=== PATIENT | male | born 1940 | race Caucasian/White ===

== ENCOUNTER 2019-03-11 07:27 | Day surgery (SDC) | payer MEDICARE, BC ==
[2019-03-09 10:50] VITALS: BMI 23.6
[2019-03-11] MEDS ORDERED: SODIUM CHLORIDE 0.9% 1,000 ML IV SCH ×2 (07:28→09:00)
[2019-03-11] MEDS ORDERED: LACTATED RINGERS 1,000 ML IV SCH (07:28)
[2019-03-11 07:45] VITALS: TEMP 97.7
[2019-03-11 08:14] LABS: Calcium 9.6 mg/dL (8.4-10.2); Potassium 4.5 mmol/L (3.5-5.1)
[2019-03-11] MEDS ORDERED: PROPOFOL 10 MG/ML 20 ML VIAL IV ONE (08:27)
[2019-03-11] MEDS ORDERED: METOPROLOL TARTRATE 25 MG TAB PO SCH (09:00)
[2019-03-11] MEDS ORDERED: THYROID PORK 120 MG PO SCH (09:00)
[2019-03-11] MEDS ORDERED: RIVAROXABAN 20 MG TAB PO SCH (09:00)
[2019-03-11 09:03] VITALS: RESP 18
--- NOTE | 2019-03-11 09:08 | CE ---
CARDIAC ELECTROPHYSIOLOGY REPORT CARDIOVERSION PROCEDURE NOTE: INDICATION: Atrial fibrillation. PROCEDURE: After explaining the procedure to the patient, its risks and the complications, his blood pressure, heart rate, O2 saturation was monitored. After obtaining transesophageal echocardiogram and obtaining sedated state per the anesthesia department, a synchronized biphasic cardioversion using 200 joules was performed with christian of sinus mechanism. There was no immediate complication. LARRY / CHRISTOPHER: [id number] /
--- NOTE | 2019-03-11 09:08 | ECHOT ---
TRANSESOPHAGEAL ECHOCARDIOGRAM INDICATION: Evaluation left atrial appendage. PROCEDURE: After explaining the procedure to the patient, the patient's blood pressure, heart rate, O2 saturation was monitored. The throat was sprayed with Cetacaine. He received sedation per anesthesia department. The probe was introduced in the esophagus without difficulty. Images were obtained. Following that, the probe was removed there was no immediate complication. FINDINGS: Biatrial enlargement was noted. Left atrial is moderately dilated. Left atrial appendage is normal. Spontaneous contrast was noted. Left ventricular size is normal. The ejection fraction is about 50% to 55%. 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 Mild thickening of the mitral valve leaflets was noted. No pericardial effusion was noted. The tricuspid valve is normal. Descending thoracic aorta revealed mild atherosclerotic changes. Contrast bubble study revealed no evidence of shunting across the interatrial septum. Doppler pulse wave and color Doppler were obtained and revealed moderate mitral with mild tricuspid and aortic regurgitation. There was no shunting by color Doppler study. CONCLUSION: 1. Biatrial enlargement. 2. Normal left ventricular size with an ejection fraction 50% to 55%. 3. Spontaneous contrast in the left atrium with normal appearance left atrial appendage. 4. Aortic sclerosis with mild aortic regurgitation. 5. Mild thickening of the mitral valve leaflets with moderate mitral regurgitation. 6. Mild tricuspid regurgitation. 7. Mild atherosclerotic changes of the descending thoracic aorta. 8. No shunting across the interatrial septum. MMODL / IJN: [id number] / MTDD
[2019-03-11 10:40] VITALS: BP 131/70; PULSE 72
== END 2019-03-11 10:25 | disposition home or self-care (01) ==
LOC: CATHCVL 07:27
PROVIDERS: ATTEND Internal Medicine Interventional Cardiology
DX: I48.1 Persistent atrial fibrillation (principal); I08.0 Rheumatic disorders of both mitral and aortic valves; I70.0 Atherosclerosis of aorta; Z79.01 Long term (current) use of anticoagulants; I42.8 Other cardiomyopathies; E07.9 Disorder of thyroid, unspecified; Z82.49 Family history of ischemic heart disease and other diseases of the circulatory system; Z72.0 Tobacco use; Z79.890 Hormone replacement therapy; Z79.899 Other long term (current) drug therapy
CPT/HCPCS: 93312; 93320; 93325; 92960; 80048; J2704

== ENCOUNTER → 2019-04-01 | Day surgery (SDC) | payer MEDICARE, BC ==
[2019-03-30 10:15] VITALS: BMI 23.6
[~2019-04-01] MED LIST: FLECAINIDE 50 MG TAB PO SCH; LACTATED RINGERS 1,000 ML IV SCH; LIDOCAINE 1% INJ 10MG/ML (20 ML MDV) ONE; METOPROLOL TARTRATE 25 MG TAB PO SCH; PROPOFOL 10 MG/ML 20 ML VIAL IV ONE; RIVAROXABAN 20 MG TAB PO SCH; SODIUM CHLORIDE 0.9% 1,000 ML IV SCH; SODIUM CHLORIDE 0.9% 500 ML 500 ML IV ONE; THYROID PORK 120 MG PO SCH; amLODIPine 5 MG TAB ONE
[2019-04-01 08:29] VITALS: TEMP 97.2
--- NOTE | 2019-04-01 09:29 | CE ---
CARDIAC ELECTROPHYSIOLOGY REPORT PROCEDURE: Cardioversion. PROCEDURE: After explaining the procedure to the patient, its risks and the complications, his blood pressure, heart rate, O2 saturation was monitored. After obtaining sedated state by the anesthesia department, a synchronized biphasic cardioversion using 200 joules was performed with judaism of normal sinus rhythm. There was no immediate complication. LARRY / CHRISTOPHER: [id number] /
[2019-04-01 10:49] VITALS: RESP 18
[2019-04-01 10:50] VITALS: BP 121/70; PULSE 56
== END | disposition home or self-care (01) ==
LOC: CATHCVL 06:50
PROVIDERS: ATTEND Internal Medicine Interventional Cardiology
DX: I48.1 Persistent atrial fibrillation (principal); I42.8 Other cardiomyopathies; Z82.49 Family history of ischemic heart disease and other diseases of the circulatory system; Z87.891 Personal history of nicotine dependence; Z79.01 Long term (current) use of anticoagulants; Z79.899 Other long term (current) drug therapy
CPT/HCPCS: 92960; J2001; J2704; 93005

== ENCOUNTER → 2019-04-20 | Outpatient (CLI) | payer MEDICARE, BC ==
--- NOTE | 2019-04-27 11:22 | P.ARTDOP ---
Arterial Doppler LOWER EXTREMITY ARTERIAL DOPPLER: DATE OF SERVICE: 04/20/2019 Reason for study: Bilateral leg pain. Doppler waveforms: Multiphasic bilaterally throughout. Pulse volume recording: []. Pressure gradients: Only below the knee on the left. Ankle-brachial indices: Greater than 1 on the right and 0.78 on the left. Toe pressures: [] on the right, [] on the left Impression: Normal right side. Mild left infrapopliteal disease. Clinical correlation recommended. Would not correspond with bilateral symptoms.
== END | disposition home or self-care (01) ==
LOC: RADUSWWP 09:52
PROVIDERS: ATTEND Family Medicine
DX: I73.9 Peripheral vascular disease, unspecified (principal)
CPT/HCPCS: 93923

== ENCOUNTER 2019-06-09 10:52 | Day surgery (SDC) | payer MEDICARE, BC ==
[2019-06-09] MEDS ORDERED: SODIUM CHLORIDE 0.9% 1,000 ML IV ONE ×2 (11:39→16:38)
[2019-06-09] MEDS ORDERED: LIDOCAINE 1% INJ 10MG/ML (20 ML MDV) ONE (12:20)
[2019-06-09] MEDS ORDERED: DEXAMETHASONE SOD PHOS (MDV) 100 MG/10 ML VIAL ONE (12:20)
[2019-06-09] MEDS ORDERED: ISOPROTERENOL 250 MCG/1.25 ML SYR IV ONE (12:20)
[2019-06-09] MEDS ORDERED: SUCCINYLCHOLINE CHLORIDE 100 MG/5 ML SYR IV ONE (12:20)
[2019-06-09] MEDS ORDERED: PROTAMINE SULFATE 10 MG/ML 5 ML VIAL IV ONE (12:20)
[2019-06-09] MEDS ORDERED: METOPROLOL TARTRATE 5 MG/5 ML VIAL IVP ONE (12:20)
[2019-06-09] MEDS ORDERED: NEOSTIGMINE 1 MG/ML 10 ML VIAL ONE (12:20)
[2019-06-09] MEDS ORDERED: fentaNYL (PF) 50 MCG/ML 2 ML AMP ONE (12:20)
[2019-06-09] MEDS ORDERED: GLYCOPYRROLATE 0.2 MG/ML 2 ML VIAL ONE (12:20)
[2019-06-09] MEDS ORDERED: PHENYLEPHRINE-0.9% NACL SYG 1 MG/10 ML SYRINGE ONE (12:20)
[2019-06-09] MEDS ORDERED: ROCURONIUM BROMIDE 10 MG/ML 10 ML VIAL IV ONE (12:20)
[2019-06-09] MEDS ORDERED: HEPARIN SODIUM,PORCINE 10,000 UNIT/ML 1 ML VIAL ONE (12:20)
[2019-06-09] MEDS ORDERED: ePHEDrine SULFATE/0.9% NACL/PF 50 MG/5 ML SYRINGE IV ONE (12:20)
[2019-06-09] MEDS ORDERED: MIDAZOLAM 2 MG/2 ML VIAL ONE (12:20)
[2019-06-09] MEDS ORDERED: PROPOFOL 10 MG/ML 20 ML VIAL IV ONE (12:20)
--- NOTE | 2019-06-09 12:36 | P.HPCAR ---
History of Present Illness This is Rabia Angulo PA-C dictating an H&P on this patient The patient was interviewed and examined by me as well as by Dr. Acevedo Case discussed with Dr. Acevedo and he agrees with the plan of care IMPRESSION / ASSESSMENT: Persistent symptomatic atrial fibrillation, failed antiarrhythmic therapy with flecainide Typical atrial flutter on low-dose flecainide, post cardioversion Nonischemic cardiomyopathy, Most recent echo showed mildly reduced LV systolic function, while in atrial fibrillation Hypothyroidism PLAN: Proceed with atrial fibrillation and atrial flutter ablation HPI Patient is a 78-year-old male with a past medical history of persistent symptomatic atrial fibrillation, typical atrial flutter, nonischemic cardiomyopathy, hypothyroidism who presents for evaluation and management of atrial fibrillation/atrial flutter. Patient has undergone two electrical cardioversions in the past for symptomatic atrial fibrillation. After the first electrical cardioversion, his symptoms improved and he felt he had more energy when he was in sinus rhythm. He went back into atrial fibrillation. He was started on flecainide and underwent another electrical cardioversion. That time he went into typical atrial flutter post-cardioversion. He had symptoms of palpitations, dizziness, and fatigue. Echocardiogram in atrial fibrillation showed mildly reduced LV systolic function. Patient seen and examined resting comfortably in bed. Denies any chest pain, palpitations, shortness of breath, orthopnea, PND, recent infections, fevers or chills. ROS: No fevers, chills or rigors, no cough, phlegm or expectoration, no nausea, vomiting or diarrhea, no hematuria, dysuria, no musculoskeletal complaints, no strokes or seizures, no skin lesions. EXAMINATION: Temperature 97.8F, pulse 62, respirations 16, blood pressure 156/77, oxygen saturation 98% on room air Patient seen and examined resting comfortably in bed, in no acute distress Lungs are clear to auscultation bilaterally, no wheezing, rhonchi or crackles Heart is regular, normal S1-S2, no murmurs appreciated No elevated JVD or lower extremity edema Abdomen soft and nontender REVIEW OF LABS, ECG & MEDICAL DATA Most recent labs reviewed, WBC 7.9, hemoglobin 15.6, platelets 233, potassium 4.4, BUN 17, creatinine 1.1, most recent TSH within normal limits Physical Exam Vitals: Vital Signs Temp Pulse Resp BP Pulse Ox 09/19/19 11:31 97.8 F 62 16 156/77 98 Intake and Output 06/08/19 06/09/19 06/09/19 22:59 06:59 14:59 Intake Total 50 Balance 50 Intake: IV 50 Other: Weight 74.2 kg Past Medical History Past Medical History: Atrial Fibrillation, Eye Disorder, Thyroid Disorder Additional Past Medical History / Comment(s): GLAUCOMA BILATERAL EYES History of Any Multi-Drug Resistant Organisms: None Reported Past Surgical History: Hernia Repair Additional Past Surgical History / Comment(s): Tear duct surgery. CARDIOVERSION X2 Past Anesthesia/Blood Transfusion Reactions: No Reported Reaction Smoking Status: Former smoker - Past Family History Father Family Medical History: Cancer Physical Examination Vital Signs Temp Pulse Resp BP Pulse Ox 06/09/19 11:31 97.8 F 62 16 156/77 98 Intake and Output 06/08/19 06/09/19 06/09/19 22:59 06:59 14:59 Intake Total 50 Balance 50 Intake: IV 50 Other: Weight 74.2 kg Results Current Medications Generic Name Dose Route Start Last Admin Trade Name Freq PRN Reason Stop Dose Admin Sodium Chloride 1,000 mls @ 20 mls/hr 06/08/19 15:30 Saline 0.9% IV .Q24H PB Lactated Ringer's 1,000 mls @ 20 mls/hr 06/09/19 06:20 Lactated Ringers IV .Q24H PB Intake and Output 06/08/19 06/09/19 06/09/19 22:59 06:59 14:59 Intake Total 50 Balance 50 Intake: IV 50 Other: Weight 74.2 kg Patient Weight 06/10/19 06:59 Weight 74.2 kg
[2019-06-09] MEDS ORDERED: LIDOCAINE 1% INJ 10MG/ML (20 ML MDV) SQ ONE (13:11)
[2019-06-09] MEDS ORDERED: HEPARIN SOD,PORK IN 0.45% NACL 25,000 UNIT in 0.45% NACL 1 250ML.BAG IV ONE (13:12)
[2019-06-09] MEDS ORDERED: IOPAMIDOL-370 100ML BTL INJ ONE (16:37)
[2019-06-09] MEDS ORDERED: HEPARIN SODIUM (1,000 UNIT/ML) 1,000 UNIT in SODIUM CHLORIDE 0.9% 1,000 ML IRRIGATION ONE (16:40)
[2019-06-09] MEDS ORDERED: HYDROcodone/APAP 5-325MG 1 EACH TAB PO PRN (16:53)
[2019-06-09] MEDS ORDERED: ACETAMINOPHEN TAB 325 MG TAB PO PRN (16:53)
--- NOTE | 2019-06-09 17:14 | P.PRLE ---
RE: Julián Lowry Dear Magi Gallego Ki underwent an A. fib ablation with cryo-ablation of the pulmonary veins with complete isolation of these veins. He also underwent successful atrial flutter ablation with bidirectional block across the RF line Intracardiac echo revealed preserved LV systolic function in sinus rhythm Therefore I will increase the dose of flecainide 200 mg twice daily for now and will continue metoprolol He will continue Xarelto lifelong Thank you for entrusting me with careful patientThank you for entrusting me with the care of the patient Warm regards Sincerely Dereje Acevedo
--- NOTE | 2019-06-09 17:21 | P.PCN ---
Preoperative Diagnosis: Diagnosis Persistent Atrial fibrillation, symptomatic, refractory to therapy, failed flecainide 50 g twice daily Atrial flutter, typical Result No left atrial appendage mass seen on intracardiac echo Successful pulmonary vein isolation of all veins using cryo-ablation Complete entrance block in all 4 veins confirmed No evidence for phrenic nerve injury Typical atrial flutter ablation Esophageal deflection YES , extreme left-sided esophagus Inducible atrial fibrillation on high-dose Isuprel only Electrical cardioversion with a synchronized shock across the chest YES Procedure details Patient was brought to the EP lab in a fasting state. Written informed consent was obtained prior to the procedure. Procedure performed under general anesthesia After initial muscle relaxant use, muscle relaxants were not given thereafter in order to assess phrenic nerve during procedure. Patient prepped and draped as per protocol Full cryo-set up with standard preparation of the cryoablation tools done. Femoral Venous access obtained on the right and left groins Venous and arterial Sheaths placed. Diagnostic catheters for the high right atrium, phrenic nerve stimulation and pacing, His bundle, RV and coronary sinus placed Intracardiac echo catheter placed. Long sheath placed in the right atrium Left and right transseptal catheterization performed under intracardiac echo guidance. Intravenous heparin with aCT above 300 Later, catheter positioning and balloon positioning in the left atrium, under intracardiac echo guidance Diagnostic EP study with Drug infusion Coronary sinus pacing and recording Baseline measurements sinus recovery times at 600, 500, 400 ms were 1049, 1078 and 1090 ms. AH 99, HV 61 Sinus cycle length 1027 ms, AK interval 290 ms, QRS 91 ms, QT 480 ms RA pressure 15/9 mmHg and LA pressure 37/8 mmHg Atrial pacing performed from the high right atrium and the coronary sinus RV pacing AV node Wenckebach block for 10 ms VA Wenckebach block greater than 650 ms Transseptal catheterization performed RA pressure 15/9 LA pressure 37/8 Transseptal catheterization performed with standard sheath. The cryoablation sheath was then placed with an over the wire exchange without any acute complications. All 4 pulmonary veins were isolated in the following sequence: Left superior followed by left inferior followed by right superior followed by right inferior The cryo-ablation balloon was placed at the os of each vein 1.5 mL of IV dye was injected to confirm an occluded vein Goal during cryoablation was to achieve complete occlusion of the pulmonary vein, achieve -30 degrees C at 30 seconds and achieve -40 degrees C at 60 seconds and a time to effect of less than 60-90 seconds, . If not the balloon was repositioned to obtain this result After completion of Cryoblation with durations from 180-240 seconds, entrance block was confirmed with the Attain circular catheter in a roving fashion around the antrum of the pulmonary veins Phrenic nerve pacing was performed from the SVC, right innominate vein area and diaphragm voltage was monitored. Diaphragmatic contractions were also monitored manually for strength of contraction. Parameter goals for each cryo freeze Complete occlusion of the appropriate vein -30 degrees C by 30 seconds -40 degrees C by 60 seconds Minimum between minus 40-55 degrees C Thaw time greater than 10 seconds Balloon visualized by intracardiac echo The esophagus was intubated. Esophageal Temperature monitoring with a CIRCA catheter formed. Esophageal deflection for hypothermia of the esophagus below 30 degrees C Left superior pulmonary vein Complete isolation, entrance block Left inferior pulmonary vein Complete isolation, entrance block Right superior pulmonary vein, during phrenic nerve pacing Complete isolation, entrance block Right middle pulmonary vein, successful Cryoblation 2 minutes, complete isolation Right inferior pulmonary vein, during phrenic nerve pacing Complete isolation, entrance block At the end of the procedure the Achieve catheter was once again used to check for entrance block Phrenic nerve stimulation was performed to confirm diaphragmatic stimulation the end of the procedure Cine fluoroscopy was performed at the very end of the procedure to confirm movement of both diaphragms with inspiration and expiration Thereafter the sheath was removed from the left atrium. A new sheath was placed in the right heart for atrial flutter ablation An irrigated tip ablation catheter was placed in the right atrium 3-D electro anatomic mapping was performed Tricuspid annulus and IVC were tagged Isthmus was identified with intracardiac echo. 3-D mapping was performed RF line of block was made from the tricuspid annulus to the IVC Complete bidirectional block was proven Split potentials along the line were demonstrated Isthmus conduction time greater than 190 ms in either direction At the end of the procedure high-dose Isuprel was infused with resulting induction of multiple different atrial tachycardia is in atrial fibrillation. IV metoprolol was given an electrical cardioversion was performed 200 J biphasic shock, AP configuration, successful conversion to sinus rhythm At the end of the procedure the patient was extubated Heparin was reversed Venous sheaths were removed and hemostasis assured Procedures performed ([facility] - CRYO Ablation and typical atrial flutter ablation) Diagnostic EP study with attempted arrhythmia induction CS pacing and recording Left and right transseptal catheterization 3D mapping) Intracardiac echocardiography Pulmonary vein isolation with transseptal and comprehensive EPS, 20226 Typical atrial flutter ablation, +[id number] Electrical cardioversion with a synchronized shock across the chest 03060 Drug Infusion +[id number]
[2019-06-09] MEDS ORDERED: LACTATED RINGERS 1,000 ML IV ONE ×2 (17:34)
[2019-06-09] MEDS: ACETAMINOPHEN IV (For NPO) 1,000 MG in EMPTY BAG 1 BAG IVPB ONE ×2 (18:00→18:15)
[2019-06-09 19:38] VITALS: RESP 18
[2019-06-09 20:43] VITALS: BMI 24.1
[2019-06-09] MEDS ORDERED: LATANOPROST 0.005% OPHTH DROPS 2.5 ML BTL BOTH EYES SCH (21:00)
[2019-06-09] MEDS: METOPROLOL TARTRATE 25 MG TAB PO SCH (21:27)
[2019-06-09] MEDS: FLECAINIDE 50 MG TAB PO SCH (21:27)
[2019-06-10] MEDS ORDERED: THYROID, PORK 30 MG TAB PO SCH (06:30)
[2019-06-10] MEDS: LACTATED RINGERS 1,000 ML IV SCH ×2 (07:11→07:12)
[2019-06-10] MEDS: SODIUM CHLORIDE 0.9% 1,000 ML IV SCH ×2 (07:11→07:13)
--- NOTE | 2019-06-10 07:52 | P.DS ---
Providers Attending physician: Dereje Acevedo Primary care physician: [facility] Course: Patient is ambulating around in his room. He has a sore throat and is coughing up bits of blood. I can see a superficial laceration on the back of his throat on examination Yesterday he had a very difficult intubation of both the esophagus as well as the trachea on account of a very small oropharynx and hypopharynx. Steroids given by anesthesiologist perioperatively I don't see any swelling he has no odynophagia no dysphagia and denies any pain in his throat No chest discomfort no palpitations no dizziness lightheadedness he does not appear short of breath denies any pain in the groins On examination his groins of healed well there is no hematoma no tenderness no lower extremity edema Abdomen soft nontender Normal heart sounds are regular and normal S1 normal S2 no murmurs or gallops or rub Breath sounds are clear no rhonchi no crackles No JVD no swelling in the neck No swelling of the oropharynx Impression Persistent atrial fibrillation failed drug therapy Typical atrial flutter documented in the past Status post successful isolation of all pulmonary veins including the right middle pulmonary vein cryoablation Successful atrial flutter ablation with some was conduction times greater than 190 ms with bidirectional block and split potentials along the line Inducible irregular atrial tachycardia only with high-dose Isuprel Improvement in LV systolic function on intracardiac echo during sinus rhythm Mildly abnormal elongation twelve-lead ECG Asymmetric T-wave inversions in V4-V6 Suggest Continue Xarelto 20 mg by mouth daily Continue metoprolol 25 mg twice daily and Flexeril 100 mg twice daily Follow-up with Dr. Wilcox within one week Follow-up Holter monitor that time May go home today around 4 to 5:00 PM if he is hemodynamically stable and ambulating around in the hallways Increase fluid intake, saline gargles and a soft diet Colchicine today Plan - Discharge Summary Discharge Rx Participant: No New Discharge Prescriptions: New Flecainide Acetate [Tambocor] 100 mg PO Q12HR #180 tab Discontinued Flecainide Acetate 50 mg PO BID No Action Thyroid,Pork [[place] Thyroid] 120 mg PO DAILY Rivaroxaban [Xarelto] 20 mg PO DAILY Metoprolol Tartrate 25 mg PO BID #0 Latanoprost/Pf [Latanoprost 0.005% Eye Drop] 1 drop BOTH EYES HS Discharge Medication List Rivaroxaban [Xarelto] 20 mg PO DAILY 03/09/19 [History] Thyroid,Pork [[place] Thyroid] 120 mg PO DAILY 03/09/19 [History] Metoprolol Tartrate 25 mg PO BID #0 03/11/19 [Rx] Latanoprost/Pf [Latanoprost 0.005% Eye Drop] 1 drop BOTH EYES HS 06/07/19 [History] Flecainide Acetate [Tambocor] 100 mg PO Q12HR #180 tab 06/09/19 [Rx] Follow up Appointment(s)/Referral(s): Tej Wilcox MD [STAFF PHYSICIAN] - 1 Week Activity/Diet/Wound Care/Special Instructions: Post EP study - Ablation instructions 1. Keep access sites dry for 2 days. 2. No heavy lifting or straining for 2 days. 3. Avoid bending the hips repeatedly for 2 days. 4. You may go up and down stairs slowly Call if the following is noted 1. Bleeding, increasing swelling or pain at the access sites. 2. Increasing chest discomfort, especially upon taking a deep breath. 3. Increasing shortness of breath, at rest or with exertion. 4. Undue cough / phlegm 5. Difficulty or pain while swallowing. 6. Pain or change in color in the extremities. 7. Fever, chills, rigors. 8. Increasing headache or neurologic symptoms. 9. Dizziness, fainting, palpitations Increase flecainide to 100 mg twice a day, continue all other cardiac medications including metoprolol and Xarelto
[2019-06-10] MEDS: FLECAINIDE 50 MG TAB PO SCH (08:47)
[2019-06-10] MEDS: METOPROLOL TARTRATE 25 MG TAB PO SCH (08:47)
[2019-06-10] MEDS ORDERED: RIVAROXABAN 20 MG TAB PO SCH (09:00)
[2019-06-10] MEDS ORDERED: COLCHICINE 0.6 MG EACH PO SCH (09:00)
[2019-06-10 15:30] VITALS: BP 115/72; PULSE 84; TEMP 98.3
== END 2019-06-10 16:35 | disposition home or self-care (01) ==
LOC: CATHEP 10:52 → 1SOBS 16:49 → CATHEP 06-10 16:35
PROVIDERS: ATTEND Internal Medicine Clinical Cardiac Electrophysiology
DX: I48.1 Persistent atrial fibrillation (principal); I48.3 Typical atrial flutter; I42.8 Other cardiomyopathies; E03.9 Hypothyroidism, unspecified; H40.9 Unspecified glaucoma; Z87.891 Personal history of nicotine dependence; K21.9 Gastro-esophageal reflux disease without esophagitis; Z79.01 Long term (current) use of anticoagulants; Z79.899 Other long term (current) drug therapy
CPT/HCPCS: 85347; 93623; 93662; 93613; 93656; 93657; C1769 ×4; C1894 ×2; C1730 ×2; C1759; C1893; C1733; C1732; J2250; J2720; J1644 ×3; J2710; J2001; J3010; J1100; J0131; J2370; J0330; J2704; Q9967

== ENCOUNTER → 2020-11-01 | Outpatient (CLI) | payer MEDICARE, BC | END | disposition home or self-care (01) | LOC: RADCTMAIN 12:53 | PROVIDERS: ATTEND Nurse Practitioner Adult Health | DX: Z53.9 Procedure and treatment not carried out, unspecified reason (principal) ==